=== PATIENT | male | born 1965 | race Caucasian/White ===

== ENCOUNTER 2018-12-09 14:15 | Emergency (ER) | payer BC ==
[2018-12-09] MEDS ORDERED: Bupivacaine 0.5% 10 ML SDV INFILT ONE (14:16)
[2018-12-09] MEDS ORDERED: Diphtheria,Pertussis(Acell),Tetanus Vaccine 0.5 ML SDV IM ONE (14:24)
--- NOTE | 2018-12-09 14:24 | EDM.PDOC ---
ED HPI GENERAL MEDICAL PROBLEM - General Chief Complaint: Lower Extremity Injury/Pain Stated Complaint: FINGER LACERATION Time Seen by Provider: 12/09/18 14:15 Source of Information: Reports: Patient History Limitations: Reports: No Limitations - History of Present Illness Onset Date: 12/09/18 Onset Time: 13:00 Duration: Hour(s):, Constant Location: Reports: Upper Extremity, Left (1st finger) Quality: Reports: Dull Severity: Mild Improves with: Reports: Rest Worsens with: Reports: Movement Context: Reports: Trauma Associated Symptoms: Reports: No Other Symptoms - Related Data Allergies Allergy/AdvReac Type Severity Reaction Status Date / Time Penicillins Allergy Airway Verified 12/09/18 14:35 Tightness Sulfa (Sulfonamide Allergy Hives Verified 12/09/18 14:38 Antibiotics) Home Meds: Home Meds Ciprofloxacin HCl [Cipro] 500 mg PO BID #20 tablet 12/09/18 [Rx] Review of Systems - Review of Systems Review Of Systems: See Below Constitutional: Reports: No Symptoms Eyes: Reports: No Symptoms Ears: Reports: No Symptoms Nose: Reports: No Symptoms Mouth/Throat: Reports: No Symptoms Respiratory: Reports: No Symptoms Cardiovascular: Reports: No Symptoms GI/Abdominal: Reports: No Symptoms Genitourinary: Reports: No Symptoms Musculoskeletal: Reports: No Symptoms Skin: Reports: Wound (LAC left thumb) Neurological: Reports: No Symptoms Psychiatric: Reports: No Symptoms ED EXAM, GENERAL - Physical Exam Exam: See Below Exam Limited By: No Limitations General Appearance: Alert, WD/WN, Mild Distress Eye Exam: Bilateral Eye: Normal Inspection Ears: Normal External Exam Ear Exam: Bilateral Ear: Auricle Normal Nose: Normal Inspection, Normal Mucosa Throat/Mouth: Normal Inspection, Normal Lips, Normal Voice, No Airway Compromise Head: Atraumatic, Normocephalic Neck: Normal Inspection, Supple, Non-Tender, Full Range of Motion Respiratory/Chest: No Respiratory Distress, Lungs Clear, Normal Breath Sounds, No Accessory Muscle Use, Chest Non-Tender Cardiovascular: Normal Peripheral Pulses, Regular Rate, Rhythm, No Edema, No Gallop Peripheral Pulses: 2+: Brachial (R) GI/Abdominal: Normal Bowel Sounds, Soft, Non-Tender, No Organomegaly, No Abnormal Bruit, No Mass, Pelvis Stable (Male) Exam: Deferred Rectal (Males) Exam: Deferred Back Exam: Normal Inspection Extremities: Normal Inspection (Thumb LAC please see below), Normal Range of Motion, Non-Tender, No Pedal Edema Neurological: Alert, Oriented, CN II-XII Intact, Normal Cognition, Normal Gait Psychiatric: Normal Affect, Normal Mood Skin Exam: Warm, Dry, Normal Color, No Rash, Wound/Incision (left thumb, no active bleed) Lymphatic: No Adenopathy ED TRAUMA EXTREMITY PROCEDURES - Laceration/Wound Repair Left Posterior Distal Digit - 1st (Thumb) Lac/Wound Length In cm: 1.2 Appearance: Linear, Clean Distal NVT: Neuro & Vascular Intact, No Tendon Injury Anesthetic Type: Local Local Anesthesia - Bupivicaine (Marcaine): 0.5% Plain Local Anesthetic Volume: 4cc Skin Prep: Chlorhexidine (Hibiciens) Saline Irrigation (cc's): 5 Exploration/Debridement/Repair: Wound Explored, In a Bloodless Field, Explored to Base Closed With: Sutures Suture Size: 4-0 # of Sutures: 4 Suture Type: Other (ethilon) Tetanus Status Addressed: Yes (given today) Complications: No Course - Vital Signs Text/Narrative:: Impression: Right Thumb Finger Laceration - Orders/Labs/Meds Orders: Active Orders 24 hr Category Date Time Status Vaccines to be Administered [RC] PER UNIT ROUTINE Care 12/09/18 14:24 Ordered Meds: Medications Discontinued Medications Generic Name Dose Route Start Last Admin Trade Name Stephen PRN Reason Stop Dose Admin Diphtheria/Tetanus/Acell Pertussis 0.5 ml 12/09/18 14:24 Adacel IM 12/09/18 14:25 .ONCE ONE Departure - Departure Time of Disposition: 14:48 Disposition: Home, Self-Care 01 Condition: Good Clinical Impression: Laceration - Discharge Information Prescriptions: Ciprofloxacin HCl [Cipro] 500 mg PO BID #20 tablet Referrals: Khang Glover MD [Primary Care Provider] - Forms: ED Department Discharge Additional Instructions: Please apply Neosporine ointment to wound twice daily, please take cipro as recommended, wound check this Tuesday, suture removal in 10 days, please come back if your symptoms get worse acutely. - My Orders Last 24 Hours: My Active Orders 12/09/18 14:24 Vaccines to be Administered [RC] PER UNIT ROUTINE - Assessment/Plan Last 24 Hours: My Active Orders 12/09/18 14:24 Vaccines to be Administered [RC] PER UNIT ROUTINE
[2018-12-09] MEDS ORDERED: Ciprofloxacin 500 MG Tab PO STA (14:47)
--- NOTE | 2018-12-09 16:01 | EDM.PDOC ---
ED HPI GENERAL MEDICAL PROBLEM - General Chief Complaint: Upper Extremity Injury/Pain Stated Complaint: FINGER LACERATION Time Seen by Provider: 12/09/18 14:15 Source of Information: Reports: Patient, Family History Limitations: Reports: No Limitations - History of Present Illness INITIAL COMMENTS - FREE TEXT/NARRATIVE: 53 years old cortez reid came to the ed with his family due to a LAC at his left thumb. He cut himself while cleaning a steak at home. Wound was bleeding immediately. 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 Cap refill was < 2 sec. no other acute medical issues.BP 168/85 Pulse 85 RR 18 Pulse ox 98% on RA Temp 36.8 Onset Date: 12/09/18 Onset Time: 13:20 Duration: Minutes: Location: Reports: Upper Extremity, Left (thumb) Quality: Reports: Ache Severity: Mild Improves with: Reports: Rest Worsens with: Reports: Movement Context: Reports: Trauma (cut in left thumb by accident while "Cleaning Steaks") Associated Symptoms: Reports: No Other Symptoms - Related Data Allergies Allergy/AdvReac Type Severity Reaction Status Date / Time Penicillins Allergy Airway Verified 12/09/18 14:35 Tightness Sulfa (Sulfonamide Allergy Hives Verified 12/09/18 14:38 Antibiotics) Home Meds: Home Meds Ciprofloxacin HCl [Cipro] 500 mg PO BID #20 tablet 12/09/18 [Rx] Past Medical History - Past Health History Medical/Surgical History: Denies Medical/Surgical History Social & Family History - Family History Family Medical History: Noncontributory - Tobacco Use Smoking Status *Q: Never Smoker Second Hand Smoke Exposure: No - Caffeine Use Caffeine Use: Reports: Coffee - Recreational Drug Use Recreational Drug Use: No Review of Systems - Review of Systems Review Of Systems: See Below Constitutional: Reports: No Symptoms Eyes: Reports: No Symptoms Ears: Reports: No Symptoms Nose: Reports: No Symptoms Mouth/Throat: Reports: No Symptoms Respiratory: Reports: No Symptoms Cardiovascular: Reports: No Symptoms GI/Abdominal: Reports: No Symptoms Genitourinary: Reports: No Symptoms Musculoskeletal: Reports: No Symptoms Skin: Reports: Wound (laceration left thumb) Neurological: Reports: No Symptoms Psychiatric: Reports: No Symptoms ED EXAM, GENERAL - Physical Exam Exam: See Below Exam Limited By: No Limitations General Appearance: Alert, WD/WN, Mild Distress Eye Exam: Bilateral Eye: Normal Inspection Ears: Normal External Exam Ear Exam: Bilateral Ear: Auricle Normal Nose: Normal Inspection, Normal Mucosa Throat/Mouth: Normal Inspection, Normal Lips, Normal Voice, No Airway Compromise Head: Atraumatic, Normocephalic Neck: Normal Inspection, Supple, Non-Tender, Full Range of Motion Respiratory/Chest: No Respiratory Distress, Lungs Clear, Normal Breath Sounds, Chest Non-Tender Cardiovascular: Normal Peripheral Pulses, Regular Rate, Rhythm, No Edema, No Gallop, No Murmur, No Rub Peripheral Pulses: 2+: Carotid (R) GI/Abdominal: Normal Bowel Sounds, Soft, Non-Tender, No Abnormal Bruit, No Mass (Male) Exam: No Hernia Rectal (Males) Exam: Deferred Back Exam: Normal Inspection, Full Range of Motion Extremities: Normal Inspection, Normal Range of Motion, Non-Tender, No Pedal Edema, Normal Capillary Refill Neurological: Alert, Oriented, CN II-XII Intact, Normal Cognition, Normal Gait Psychiatric: Normal Affect, Normal Mood Skin Exam: Warm, Dry, Normal Color, No Rash, Wound/Incision (left distal thumb) Lymphatic: No Adenopathy ED TRAUMA EXTREMITY PROCEDURES - Laceration/Wound Repair Left Posterior Distal Digit - 1st (Thumb) Lac/Wound Length In cm: 2 Appearance: Subcutaneous, Linear Distal NVT: Neuro & Vascular Intact, No Tendon Injury Anesthetic Type: Local Local Anesthesia - Bupivicaine (Marcaine): 0.5% Plain Local Anesthetic Volume: 3cc Skin Prep: Chlorhexidine (Hibiciens) Saline Irrigation (cc's): 5 Exploration/Debridement/Repair: Wound Explored, In a Bloodless Field, Explored to Base Closed With: Sutures # of Sutures: 4 Suture Type: Other (ethilon) Sterile Dressing Applied: Nurse Tetanus Status Addressed: Yes (given today) Complications: No Course - Vital Signs Text/Narrative:: 53 years old w m came to the ed with his family due to a LAC at his left thumb. He cut himself while cleaning a steak at home. Wound was bleeding immediately. 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 Cap refill was < 2 sec. no other acute medical issues.BP 168/85 Pulse 85 RR 18 Pulse ox 98% on RA Temp 36.8 PE: WNWD W M with a 2 cm LAC left thump dorsal aspect, distal phalanx Procedure: please see note above. Impression: Laceration left thumb, repaired in the ED Tx: Wound care, TD, Cipro Reexam: Improved Plan: D/C with instructions Last Recorded V/S: Last Vital Signs Temp 36.9 C 12/09/18 14:15 Pulse 99 12/09/18 14:15 Resp 18 12/09/18 14:15 BP 168/85 H 12/09/18 14:15 Pulse Ox 96 12/09/18 14:15 - Orders/Labs/Meds Orders: Active Orders 24 hr Category Date Time Status Vaccines to be Administered [RC] PER UNIT ROUTINE Care 12/09/18 14:24 Active Meds: Medications Discontinued Medications Generic Name Dose Route Start Last Admin Trade Name Stephen PRN Reason Stop Dose Admin Ciprofloxacin 500 mg 12/09/18 14:47 12/09/18 14:50 Ciprofloxacin Hcl PO 12/09/18 14:48 500 mg ONETIME STA Administration Diphtheria/Tetanus/Acell Pertussis 0.5 ml 12/09/18 14:24 12/09/18 14:50 Adacel IM 12/09/18 14:25 0.5 ml .ONCE ONE Administration Departure - Departure Time of Disposition: 15:23 Disposition: Home, Self-Care 01 Clinical Impression: Laceration - Discharge Information Prescriptions: Ciprofloxacin HCl [Cipro] 500 mg PO BID #20 tablet Referrals: Khang Glover MD [Primary Care Provider] - Forms: ED Department Discharge Additional Instructions: Please apply Neosporine ointment to wound twice daily, please take cipro as recommended, wound check this Tuesday, suture removal in 10 days, please come back if your symptoms get worse acutely. - My Orders Last 24 Hours: My Active Orders 12/09/18 14:24 Vaccines to be Administered [RC] PER UNIT ROUTINE - Assessment/Plan Last 24 Hours: My Active Orders 12/09/18 14:24 Vaccines to be Administered [RC] PER UNIT ROUTINE
== END 2018-12-09 15:10 | disposition home or self-care (01) ==
LOC: FB.ED 14:15
DX: S61.012A Laceration without foreign body of left thumb without damage to nail, initial encounter (principal); Z88.2 Allergy status to sulfonamides; Z88.0 Allergy status to penicillin; Z23 Encounter for immunization; W45.8XXA Other foreign body or object entering through skin, initial encounter
CPT/HCPCS: 12001; 90471; 90715; 99283; A9270; J3490